=== PATIENT | male | born 1970 | race American Indian/Alaskan Native ===

== ENCOUNTER 2019-03-26 11:40 | Emergency (ER) | payer SELFPAY ==
--- NOTE | 2019-03-26 11:59 | Emergency Department Report ---
Blank Doc - Documentation Documentation: 48-year-old male that presents with left elbow pain after playing baseball. This initial assessment/diagnostic orders/clinical plan/treatment(s) is/are subject to change based on patient's health status, clinical progression and re- assessment by fellow clinical providers in the ED. Further treatment and workup at subsequent clinical providers discretion. Patient/guardians urged not to elope from the ED as their condition may be serious if not clinically assessed and managed. Initial orders include: 1- Patient sent to [facility] for further evaluation and treatment 2- xrays
--- NOTE | 2019-03-26 12:31 | XRay Report ---
LEFT ELBOW 3 VIEW(S) INDICATION / CLINICAL INFORMATION: elbow pain COMPARISON: None available. FINDINGS: BONES / JOINT(S): No acute fracture or subluxation. Mild tricompartment degenerative arthrosis. No si gnificant joint effusion. SOFT TISSUES: Mild posterior soft tissue swelling. ADDITIONAL FINDINGS: None. Signer Name: Juan Padron MD Signed: 03/26/2019 12:27 PM Workstation Name: [id number]
[2019-03-26 12:35] VITALS: BP 133/71
--- NOTE | 2019-03-26 13:49 | Emergency Department Report ---
ED Upper Extremity Inj HPI - General Chief Complaint: Extremity Injury, Upper Stated Complaint: ELBOW PAIN Time Seen by Provider: 03/26/19 11:57 Source: patient Mode of arrival: Ambulatory Limitations: No Limitations - History of Present Illness Initial Comments: This is a 48-year-old -[place] male who presents to the emergency room with left elbow pain and swelling for 1 week. Patient states it is affecting his work. He does not recall injuring left arm. He denies numbness or tingling, paresthesias, weakness, redness, warmth, or break in skin. MD Complaint: Injury to:: left, elbow Onset/Timin -: week(s) Other Extremity Injury: Elbow: Left Other Injuries: none Handedness: right Severity scale (0 -10): 10 Improves With: none Worsens With: movement of extremity Associated Symptoms: denies other symptoms Treatments Prior to Arrival: NSAIDS - Related Data Previous Rx's Medication Instructions Recorded Last Taken Type Acetaminophen [Acetaminophen TAB] 650 mg PO Q4H PRN tablet 02/02/18 Unknown Rx Methimazole [Tapazole] 10 mg PO DAILY #30 tablet 02/02/18 Unknown Rx Ibuprofen [Motrin 800 MG tab] 800 mg PO Q8HR PRN #20 tablet 03/26/19 Unknown Rx methylPREDNISolone [Medrol 4MG 4 mg PO DAILY #1 tab.ds.pk 03/26/19 Unknown Rx DOSEPAK (21 tabs)] Allergies Allergy/AdvReac Type Severity Reaction Status Date / Time No Known Allergies Allergy Verified 01/30/18 17:48 ED Review of Systems ROS: Stated complaint: ELBOW PAIN Other details as noted in HPI Constitutional: denies: chills, fever Respiratory: denies: cough, shortness of breath, wheezing Cardiovascular: denies: chest pain, palpitations Gastrointestinal: denies: abdominal pain, nausea, diarrhea Musculoskeletal: joint swelling (left elbow), arthralgia (left elbow). denies: back pain Skin: denies: rash, lesions Neurological: denies: headache, weakness, paresthesias Psychiatric: denies: anxiety, depression ED Past Medical Hx - Past Medical History Hx Heart Attack/AMI: No Hx Congestive Heart Failure: No Hx Diabetes: No Hx Liver Disease: No Hx Asthma: No Hx COPD: No Additional medical history: hyperthyroidism. FISTULA - Surgical History Hx Open Heart Surgery: No - Social History Smoking Status: Never Smoker Substance Use Type: Marijuana - Medications Home Medications: Home Medications Medication Instructions Recorded Confirmed Last Taken Type Acetaminophen [Acetaminophen TAB] 650 mg PO Q4H PRN tablet 02/02/18 Unknown Rx Methimazole [Tapazole] 10 mg PO DAILY #30 tablet 02/02/18 Unknown Rx Ibuprofen [Motrin 800 MG tab] 800 mg PO Q8HR PRN #20 tablet 03/26/19 Unknown Rx methylPREDNISolone [Medrol 4MG 4 mg PO DAILY #1 tab.ds.pk 03/26/19 Unknown Rx DOSEPAK (21 tabs)] ED Physical Exam - General Limitations: No Limitations General appearance: alert, in no apparent distress - Respiratory Respiratory exam: Present: normal lung sounds bilaterally. Absent: respiratory distress - Cardiovascular Cardiovascular Exam: Present: regular rate, normal rhythm. Absent: systolic murmur, diastolic murmur, rubs, gallop - GI/Abdominal GI/Abdominal exam: Present: soft, normal bowel sounds - Expanded Upper Extremity Exam Left Elbow exam: Present: full ROM (pain secondary swelling), tenderness (tenderness and swelling over the olecranon), swelling. Absent: abrasion, laceration, ecchymosis, deformity, crepidus, dislocation, erythema, effusion, pain w/ pronation/supination, tenderness over radial head Forearm Wrist exam: Present: normal inspection, full ROM Hand Wrist exam: Present: normal inspection, full ROM Neuro motor exam: Present: wrist extension intact, thumb opposition intact, thumb IP flexion intact, thumb adduction intact, fingers 2-5 abduction intact Neurosensory exam: Present: radial nerve intact, ulnar nerve intact, median nerve intact Vascular: Present: normal capillary refill (brisk), radial pulse (2+) - Neurological Exam Neurological exam: Present: alert, oriented X3 - Psychiatric Psychiatric exam: Present: normal affect, normal mood - Skin Skin exam: Present: warm, dry, intact, normal color. Absent: rash ED Course Vital Signs 03/26/19 03/26/19 11:45 12:36 Temperature 98.2 F Pulse Rate 66 Respiratory 18 18 Rate Blood Pressure 133/71 O2 Sat by Pulse 97 97 Oximetry ED Medical Decision Making - Radiology Data Radiology results: report reviewed LEFT ELBOW 3 VIEW(S) INDICATION / CLINICAL INFORMATION: elbow pain COMPARISON: None available. FINDINGS: BONES / JOINT(S): No acute fracture or subluxation. Mild tricompartment degenerative arthrosis. No significant joint effusion. SOFT TISSUES: Mild posterior soft tissue swelling. ADDITIONAL FINDINGS: None. - Medical Decision Making Patient was examined by me. Patient is nontoxic appearing and stable. Vitals are normal. Obtained x-ray of left elbow. Mild posterior soft tissue swelling. Patient has full range of motion pain secondary swelling. There is swelling over left olecranon which appeared to be bursitis. Patient informed of results. Start Medrol Dosepak and ibuprofen. Follow up with PCP or return to the ER with worsening symptoms. Patient discharged home in stable condition. Critical care attestation.: If time is entered above; I have spent that time in minutes in the direct care of this critically ill patient, excluding procedure time. ED Disposition Clinical Impression: Left elbow pain Bursitis of left elbow Qualifiers: Elbow bursitis location: olecranon bursitis Qualified Code(s): M70.22 - Olecranon bursitis, left elbow Disposition: TO HOME OR SELFCARE Is pt being admited?: No Condition: Stable Instructions: Elbow Bursitis (ED), RICE Therapy (ED) Prescriptions: methylPREDNISolone [Medrol 4MG DOSEPAK (21 tabs)] 4 mg PO DAILY #1 tab.ds.pk Ibuprofen [Motrin 800 MG tab] 800 mg PO Q8HR PRN #20 tablet PRN Reason: Pain , Severe (7-10) Referrals: [facility] [place] [Outside] - 3-5 Days [facility] [Outside] - 3-5 Days [facility] [Outside] - 3-5 Days Forms: Work/School Release Form(ED) Time of Disposition: 13:49
== END 2019-03-26 13:57 | disposition home or self-care (01) ==
LOC: ED 11:40
DX: M70.32 Other bursitis of elbow, left elbow (principal); E05.90 Thyrotoxicosis, unspecified without thyrotoxic crisis or storm; F12.10 Cannabis abuse, uncomplicated; Z79.899 Other long term (current) drug therapy

== ENCOUNTER 2020-02-19 14:07 | Emergency (ER) | payer SELFPAY ==
[2020-02-19 14:13] VITALS: BP 122/74
--- NOTE | 2020-02-19 16:39 | Emergency Department Report ---
Chief Complaint: Extremity Problem,Nontraumatic Stated Complaint: PAIN IN LEG/FEET Time Seen by Provider: 02/19/20 15:53 - HPI History of Present Illness: Patient is a 49-year-old male presents emergency room with complaints of left knee pain for several months. He denies any fall or injury. He denies any swelling, numbness, weakness. He has not seen a primary care physician or an orthopedic doctor for this complaint. He has a past medical history of hyperthyroidism. No allergies to medications. Vitals are normal On exam: No bony tenderness palpation of the left knee, full range of motion of the left lower extremity, no edema of the left leg, no signs of joint effusion, no erythema, no increased warmth, neurovascularly intact Patient presents for chronic left knee pain He has had no trauma There are no signs of septic joint, gout, significant knee effusion He has no clinical signs of DVT Discussed supportive care and symptomatic treatment with patient Patient will be referred to primary care physician and orthopedic Discussed strict return precautions with patient Medical screen examination performed there is no threat to life or limb at this time - Exam Vital Signs: Vital Signs 02/19/20 14:12 Temperature 98.3 F Pulse Rate 77 Respiratory 16 Rate Blood Pressure 122/74 O2 Sat by Pulse 97 Oximetry MSE screening note: Focused history and physical exam performed. Due to findings the following was ordered: ED Disposition for MSE Clinical Impression: Chronic pain of left knee Disposition: Z-07 MED SCREENING EXAM-LEFT Is pt being admited?: No Does the pt Need Aspirin: No Condition: Stable Instructions: Osteoarthritis (ED), Knee Pain (ED) Additional Instructions: Please alternate Tylenol and ibuprofen every 6-8 hours as needed for discomfort. May use [place] balm ointment or arthritis rub. May ice for 15 minutes at a time, rest, elevate the leg. Follow-up with your primary care doctor. Follow- up with orthopedic doctor. Return to emergency room for any new or worsening symptoms. Referrals: SERGE PÉREZ MD [Staff Physician] - 2-3 Days [facility] [Provider Group] - 2-3 Days GLENYS ALVES MD [Staff Physician] - 2-3 Days [facility] [Provider Group] - 2-3 Days Time of Disposition: 16:38 Print Language: TURKMEN
== END 2020-02-19 17:09 | disposition left against medical advice (07) ==
LOC: ED 14:07
DX: M79.604 Pain in right leg (principal); Z53.21 Procedure and treatment not carried out due to patient leaving prior to being seen by health care provider